=== PATIENT | male | born 1955 | race Hispanic/Latino ===

== ENCOUNTER 2024-08-31 06:27 | Emergency (ER) | payer OTHER, MEDICAID ==
[~2024-08-31] VITALS: Ht 167.6 cm; Wt 70.8 kg
[2024-08-31] MEDS: FAMOTIDINE 20MG VIAL IV ONE (07:28)
[2024-08-31] MEDS: Solu-medROL 125MG VIAL IVP ONE (07:28)
[2024-08-31] MEDS ORDERED: LORA10TA7 PO (08:12)
[2024-08-31] MEDS ORDERED: PRED10TA23 PO (08:12)
--- NOTE | 2024-08-31 08:12 | ERN ---
General Chief Complaint: Allergic Reaction Stated Complaint: ALLERGIC REACTION, SWELLING TO FACE X2 DAYS Time Seen by MD: 07:06 Source: patient History of Present Illness Initial Comments Patient is a 69-year-old male coming in to be evaluated for bilateral eye swelling. Patient states that he has been taking a new medication which she has started taking two days ago. He states that shortly after taking that medication he noticed his swelling. No fever no chills no nausea no vomiting. Allergies: Coded Allergies: tamsulosin (Unverified Allergy, Unknown, 08/31/24) Past Medical History Past Medical History: Diabetes-Type II, High Cholesterol, Hypertension, Prostatitis Past Surgical History: None ROS Dictation CONSTITUTIONAL: No chills, no fever, no weakness, no diaphoresis, no malaise. HEAD/FACE: No signs of trauma. EENT: No eye pain, no blurred vision, no tearing, no double vision, no ear pain, no ear discharge, no nose pain, no nasal congestion, no throat pain, no throat swelling, no mouth pain. RESPIRATORY: No cough, no orthopnea, no SOB, no stridor, no wheezing. CARDIOVASCULAR: No chest pain, no edema, no palpitations, no syncope. GASTROINTESTINAL/ABDOMINAL: No abdominal pain, no constipation, no diarrhea, no nausea, no vomiting. GENITOURINARY: No abnormal discharge, no dysuria, no frequent urination, no hematuria. No complaints of pain in the genitals. MUSCULOSKELETAL: No back pain, no gout, no joint pain, no joint swelling, no muscle pain, no muscle stiffness, no neck pain. INTEGUMENTARY: No change in color, no change in hair/nails, no dryness, no lesion, no lumps, rash. NEUROLOGICAL/PSYCH: No anxiety, not depressed, no emotional problem, no headache, no numbness, no pre-existing deficit, no history of seizures, no tremors, no weakness. HEMATOLOGIC/LYMPHATIC: Not anemic, no history of blood clots, no apparent bleeding, no bruising, glands not swollen. All Systems Negative, Except as Noted. Physical Exam Physical Exam Dictation VITAL SIGNS: Reviewed. GENERAL APPEARANCE: Alert, oriented x3, no acute distress, obese. HEAD AND FACE: Non-traumatic. EYES: PERRL, pink conjunctivas, eyelid no trauma, anterior chamber clear. EARS: Pinnas intact and no signs of trauma or erythema. Ear canals clear and no discharge. TMs no erythema. NOSE: No discharge, no bleeding. OROPHARYNX: Mouth normal, teeth no caries, tongue pink. Pharynx clear, no eryt zoey. Tonsils no exudates, no abscesses noted. Mucous membrane moist. NECK: Supple, non-tender, no thyromegaly, no masses, no JVD, no bruits. BREAST: Deferred. CHEST: No tenderness, no crepitus, no paradoxical movement, no retractions. LUNGS: Clear, well-ventilated, symmetric, no rales, no wheezing, no rhonchi, no stridor, good breath sounds bilaterally. HEART: Regular rate, regular rhythm, no murmur, no gallops. VASCULAR: No peripheral edema. ABDOMEN: Soft, positive bowel sounds, nondistended, no guarding, nontender, no rebound, no masses no hepatomegaly, no splenomegaly, no Whitaker's sign, no hernias. RECTAL: Deferred. GENITAL: Deferred. NEUROLOGICAL: Normal speech, gross motor function intact, gross sensory function intact. MUSCULOSKELETAL: Neck nontender, full range of motion, back nontender, full range of motion. EXTREMITIES: Nontender, full range of motion. SKIN: Color pink, dry, no turgor, no rash, no lacerations, no abrasions, no contusions. LYMPHATICS: Deferred. Results Laboratory and Microbiology Labs Reviewed?: Yes MDM MDM: Differential diagnosis: Allergic reaction, anaphylaxis, Rationale: Tests considered and ordered secondary to shared decision making include: Previous outside records reviewed: Old ER visits. Risk of complication and/or morbidity or mortality of patient management: None Patient is a 69-year-old male coming in to be evaluated for blood her eye swelling. Patient states he has started taking a new medication which she believes caused the swelling. IV steroids and Pepcid was given symptoms improved significantly. Patient will be discharged in stable condition with a diagnoses the allergic reaction.. ED Course Orders Procedure Category Date Status Time Methylprednisolone PHA 08/31/24 Complete Succ 125mg (Solu-Medr 07:30 Famotidine 20mg Vial PHA 08/31/24 Complete (Pepcid 20mg Vial) 07:30 Current Medications Medications (Trade) Dose Ordered Sig/Anmol Route PRN Reason Start Time Stop Time Status Last Admin Dose Admin Famotidine (Pepcid 20mg Vial) 20 mg ONCE ONCE IV 08/31/24 07:30 08/31/24 07:31 DC 08/31/24 07:28 Methylprednisolone Sodium Succinate (Solu-medROL 125MG) 125 mg ONCE ONCE IVP 08/31/24 07:30 08/31/24 07:31 DC 08/31/24 07:28 Vital Signs Date Time Temp Pulse Resp B/P (MAP) Pulse Ox O2 Delivery O2 Flow Rate FiO2 08/31/24 07:20 98.2 76 16 129/70 98 Room Air* 0 21 08/31/24 06:29 97.3 80 16 143/79 100 Room Air 0 DX & DISP Disposition: Discharge Departure Impression: Primary Impression: Allergic reaction Condition: Stable Scripts Loratadine (Loratadine) 10 Mg Tablet 1 TAB PO DAILY for allergy symptoms for 30 Days, #30 TAB 0 Refills Prov: NANCI BARRETT MD 08/31/24 Prednisone (Prednisone) 10 Mg Tab.ds.pk 1 TAB PO DAILY for 7 Days, #21 TAB 0 Refills Prov: NANCI BARRETT MD 08/31/24 Additional Instructions: FOLLOW-UP WITH PRIMARY CARE PROVIDER IN 1 TO 2 DAYS. TAKE MEDICATIONS DIRECTED HERE IN THE EMERGENCY ROOM. OKAY TO CONTINUE HOME MEDICATIONS UNLESS OTHERWISE DISCUSSED DURING YOUR VISIT IN THE EMERGENCY ROOM TODAY. RETURN TO YOUR NEAREST EMERGENCY ROOM IF SYMPTOMS WORSEN OR IF THERE IS NO IMPROVEMENT. CALL 911 IF YOU NEED IMMEDIATE ASSISTANCE. TAKE TYLENOL [id number] NEEDED AND IF NO CONTRAINDICATIONS ARE PRESENT. INCREASE ORAL HYDRATION. A WOUND CULTURE OR URINE CULTURE WAS ORDERED HERE IN THE EMERGENCY ROOM DEPARTMENT PLEASE FOLLOW-UP WITH PRIMARY CARE PROVIDER AND ADVISE THEM TO GET REPEAT PORTS FROM OUR FACILITY. IF YOU HAD ANY LIV WRAP/SPLINTS THAT WERE APPLIED HERE, PLEASE DO NOT REMOVE THEM UNTIL YOU SEE YOUR PRIMARY CARE OR SPECIALTY. Referrals: Referrals: SANDRA REYES MD (PCP) Time of Disposition: 08:11 NANCI BARRETT MD Aug 31, 2024 08:12
[2024-08-31 08:14] VITALS: BP 169/82; PULSE 60; RESP 16; TEMP 98; O2SAT 100
--- NOTE | 2024-08-31 12:45 | NUR ---
received a call from [facility] to clarify medication orders. per dr frederick to dispense as prescribed
== END 2024-08-31 08:20 | disposition home or self-care (01) ==
LOC: EDH 06:27
DX: T78.40XA Allergy, unspecified, initial encounter (principal); E11.9 Type 2 diabetes mellitus without complications; E78.00 Pure hypercholesterolemia, unspecified; I10 Essential (primary) hypertension; X58.XXXA Exposure to other specified factors, initial encounter
CPT/HCPCS: 99284; 96374; 96375; J2919; J3490